=== PATIENT | female | born 1970 | race Caucasian/White ===

== ENCOUNTER → 2019-03-03 | Outpatient (CLI) | payer OTHER ==
[~2019-03-03] MED LIST: CYMBALTA60 MG PO; HYDROCODONE-AP1 EAC6 PO; METHOTREXATE 22.5 MG PO; ROBAXIN 750 MG750 M1 PO; XANAX 0.5 MG0.5 MG PO
== END ==
LOC: M.CT 12:00
DX: N83.291 Other ovarian cyst, right side (principal); J84.10 Pulmonary fibrosis, unspecified; R31.9 Hematuria, unspecified; Z90.710 Acquired absence of both cervix and uterus